=== PATIENT | male | born 1945 | race Caucasian/White ===

== ENCOUNTER 2019-07-29 06:45 | Day surgery (SDC) | payer MEDICARE, OTHER ==
[~2019-07-29] VITALS: Ht 172.7 cm; Wt 85.0 kg
[~2019-07-29 06:45] MED LIST: ASPI81CH PO; ATOR40TA PO; Isosorbide Mono30 MG PO; LISI20 PO; METO25ER PO; SULTRIDS PO; THERA1 EACH PO; unknown meds
--- NOTE | 2019-07-29 08:50 | NUR ---
PT TO RECOVERY ROOM POST PROCEDURE. PT IS ALERT AND ORIENTED, CONVERSING APPROPRIATELY, DENIES CHEST PAIN POST PROCEDURE. MONITOR SR 60-70'S, B/P 157/74, AFEBRILE, SPO2 98% RA. R RADIAL SITE NO SWELLING/HEMATOMA, TR BAND IN PLACE 12 CC AIR AT 0830.
[2019-07-29] MEDS ORDERED: CLOP75 PO (09:12)
--- NOTE | 2019-07-29 11:45 | NUR ---
PT AMB IN RECOVERY ROOM WITHOUT ANY ISSUE, SITE UNCHANGED. PT DRESSED SELF WITHOUT PROBLEM, SITE UNCHANGED. TR BAND REMOVED: CLOTH DOT, WRIST IMMOBILIZER AND SLING PLACED; IV REMOVED-CANNULA INTACT. PT'S SON WILL BE PICKING HIM UP AND STAYING WITH HIM TONIGHT.
--- NOTE | 2019-07-29 11:50 | NUR ---
PT RECEIVED DISCHARGE INSTRUCTIONS, MED LIST, SITE MANAGEMENT AND AFTER CARE INSTRUCTIONS; VEBALIZED GOOD UNDERSTANDING. PT'S PRESCRIPTION WAS CALLED IN TO [facility] PER PT REQUEST. PT LEFT FACILITY VIA W/C, CONDITION STABLE.
== END 2019-07-29 12:42 | disposition home or self-care (01) ==
LOC: MHTC 06:45 → ECHO 06:45 → EDSTATUS 07:00 → ECHO 12:42
DX: I25.10 Atherosclerotic heart disease of native coronary artery without angina pectoris (principal); I11.0 Hypertensive heart disease with heart failure; I50.9 Heart failure, unspecified; J44.9 Chronic obstructive pulmonary disease, unspecified; K21.9 Gastro-esophageal reflux disease without esophagitis; E78.5 Hyperlipidemia, unspecified; Z87.891 Personal history of nicotine dependence; Z88.1 Allergy status to other antibiotic agents; Z79.82 Long term (current) use of aspirin; Z79.899 Other long term (current) drug therapy
CPT/HCPCS: 76937; 85347; 93306; 93458; 99152; 99153; C1769; C1894; J1644; J2250; J3010; J7030; Q9967

== ENCOUNTER → 2020-11-03 | Outpatient (CLI) | payer MEDICARE, OTHER ==
[~2020-11-03] MED LIST changes: +CLOP75 PO
== END | disposition home or self-care (01) ==
LOC: LAB SHORT 14:44
DX: N39.0 Urinary tract infection, site not specified (principal)
CPT/HCPCS: 87077; 87086; 87186

== ENCOUNTER 2023-01-16 06:09 | Day surgery (SDC) | payer MEDICARE, OTHER ==
[~2023-01-16] VITALS: Ht 175.3 cm; Wt 75.2 kg
--- NOTE | 2023-01-16 08:13 | NUR ---
01/16/23 0813 Delia Armas 20ML OF ROPIVACAINE 0.5% MIXED AND VERIFIED WITH 0.1ML OF EPI (1MG/ML) TO MAKE ROPIVACAINE 0.5% WITH EPI 1:200,000. 10ML OF ROPIVACAINE 0.5% WITH EPI 1:200,000 MIXED 1:1 WITH LIDOCAINE 1% TO MAKE LOCAL USED FOR INJECTION AT THE OPSITE BY DR GARCÍA. PATIENT IN PRONE POSITION. PILLOWS UNDER CHEST AND FEET WITH ARMS ON ARMBOARDS, SMALL WHITE TOWELS UNDER SHOULDERS, TWO SAFETY STRAPS (ONE AT LOWER LEGS AND ONE AT THE WAIST).
--- NOTE | 2023-01-16 10:13 | NUR ---
01/16/23 1013 Margarette Sepulveda PATIENT IN RECLINER WITH TWO SONS AT CHAIRSIDE. PT REPORTS SIGNIFICANT PAIN RELIEF AFTER 2 DOSES OF FENTANYL FOR A TOTAL OF 25MCG FENTANYL PER RN JYC. PT GIVEN 1 TABLET PERCOCET 5-325MG X 1 TO HELP KEEP PAIN AT TOLERABLE LEVEL. PATIENT DENIES NAUSEA.
--- NOTE | 2023-01-16 10:16 | NUR ---
01/16/23 1016 Margarette Sepulveda PATIENT IN RECLINER WITH 2 SONS AT BEDSIDE. REPORTS SIGNIFICANT PAIN RELIEF AFTER 2 DOSES OF FENTANYL (TOTAL 25MCG) GIVEN BY ELLA NELSON. 1 TAB PERCOCET 5-325MG PO GIVEN AT 1010 TO HELP KEEP PAIN AT MANAGEABLE LEVEL.
[2023-01-16 10:39] VITALS: BP 128/83
== END 2023-01-16 10:50 | disposition home or self-care (01) ==
LOC: ORSCSDS 06:09
PROVIDERS: Surgery
PROC: 06BY0ZC Excision of Hemorrhoidal Plexus, Open Approach (ICD-10-PCS; principal; 2023-01-16 07:30)
DX: K64.8 Other hemorrhoids (principal); K64.4 Residual hemorrhoidal skin tags; K64.5 Perianal venous thrombosis; I10 Essential (primary) hypertension; I25.2 Old myocardial infarction; I25.10 Atherosclerotic heart disease of native coronary artery without angina pectoris; J44.9 Chronic obstructive pulmonary disease, unspecified; Z87.891 Personal history of nicotine dependence; K21.9 Gastro-esophageal reflux disease without esophagitis; Z79.899 Other long term (current) drug therapy
CPT/HCPCS: 88304; A9270; J0171; J1100; J2001; J2405; J2704; J2795; J3010

== ENCOUNTER 2024-05-06 21:31 | Inpatient (IN) | payer MEDICARE, OTHER ==
[~2024-05-06] VITALS: Ht 175.3 cm; Wt 75.2 kg
[~2024-05-06 21:31] MED LIST changes: +MULVITA PO; -THERA1 EACH PO
[2024-05-06] MEDS ORDERED: Acetaminophen 500 MG Tab PO ONE (21:40)
[2024-05-06] MEDS ORDERED: Albuterol 2.5 MG/3 ML VIAL INH SCH (21:40)
[2024-05-06] MEDS ORDERED: Ipratropium Bromide INH 0.02% 0.5 mg/2.5ML Vial INH SCH (21:40)
[2024-05-06] MEDS ORDERED: NS 1,000 ML IV SCH (21:45)
[2024-05-06 21:49] LABS: BASOPHILS ABSOLUTE AUTO 0.01 K/mm3 (0.00-0.23); BASOPHILS PERCENT AUTO 0 % (0-2); EOSINOPHILS PERCENT AUTO 0 % (0-6); Hematocrit 40.7 % (37.0-53.0); Hemoglobin 13.6 g/dL (13.5-17.5); IMMATURE GRAN ABSOLUTE AUTO 0.04 K/mm3 (0.00-0.10); IMMATURE GRAN PERCENT AUTO 1 % (0-1); LYMPHOCYTES ABSOLUTE AUTO 0.47 K/mm3 (0.84-5.20); LYMPHOCYTES PERCENT AUTO 7 % (21-46); MONOCYTES ABSOLUTE AUTO 0.44 K/mm3 (0.16-1.47); MONOCYTES PERCENT AUTO 6 % (4-13); Mean Corpuscular HGB 29.4 pg (26.0-34.0); Mean Corpuscular HGB Conc 33.4 g/dL (31.5-36.5); Mean Corpuscular Volume 88 fL (80-100); Mean Platelet Volume 11.2 fL (9.1-12.4); NEUTROPHILS ABSOLUTE AUTO 6.32 K/mm3 (1.96-9.15); NEUTROPHILS PERCENT AUTO 87 % (41-73); Platelet Count 99 K/mm3 (150-400); RDW Standard Deviation 54.4 fL (35.1-46.3); Red Blood Cell Count 4.63 M/mm3 (4.30-5.90); White Blood Cell Count 7.28 K/mm3 (4.00-11.30)
[2024-05-06 22:19] LABS: Albumin, Blood 4.2 g/dL (3.4-5.0); Albumin/Globulin Ratio 1.2 (0.8-1.8); Bilirubin, Total 0.8 mg/dL (0.1-1.0); Bun/Creatinine Ratio 16.5 (12.0-20.0); Calcium, Blood 8.7 mg/dL (8.5-10.1); Creatinine, Blood 1.09 mg/dL (0.60-1.20); Globulin, Blood 3.5 g/dL (2.2-4.0); Potassium, Blood 3.8 mmol/L (3.5-5.5); Total Protein, Blood 7.7 g/dL (6.4-8.2)
[2024-05-06 22:31] LABS: Influenza B, PCR NEGATIVE (NEGATIVE); Resp Syncytial Virus, PCR NEGATIVE (NEGATIVE); SARS-Cov-2 (COVID-19) PCR, MMC NEGATIVE (NEGATIVE)
[2024-05-06] MEDS ORDERED: OxyCODONE 10/Acetamin 325 TABLET PO ONE (22:50)
[2024-05-06] MEDS ORDERED: Diltiazem HCl 5 MG / ML 5ML Vial IV ONE (23:20)
[2024-05-06 23:40] LABS: Influenza A, PCR POSITIVE (NEGATIVE)
[2024-05-07] MEDS ORDERED: FentaNYL Citrate 50 MCG/ML 2 ML Injection IV ONE (01:35)
[2024-05-07 01:45] VITALS: BP 152/78
[2024-05-07] MEDS ORDERED: OXYC10TA19 PO (01:51)
[2024-05-07] MEDS ORDERED: Ipratropium/Albuterol SulF 2.5-0.5MG/3 ML Amp INH SCH ×2 (02:35→04:10)
[2024-05-07] MEDS ORDERED: Magnesium Hydroxide Conc 10 ML UDC PO PRN (02:35)
[2024-05-07] MEDS ORDERED: PredniSONE 20 MG Tab PO SCH (03:00)
[2024-05-07] MEDS ORDERED: Oseltamivir Phosphate 75 MG Cap PO ONE (03:00)
[2024-05-07 03:12] LABS: BASOPHILS ABSOLUTE AUTO 0.01 K/mm3 (0.00-0.23); BASOPHILS PERCENT AUTO 0 % (0-2); EOSINOPHILS PERCENT AUTO 0 % (0-6); Hematocrit 38.6 % (37.0-53.0); IMMATURE GRAN ABSOLUTE AUTO 0.07 K/mm3 (0.00-0.10); IMMATURE GRAN PERCENT AUTO 1 % (0-1); LYMPHOCYTES ABSOLUTE AUTO 0.19 K/mm3 (0.84-5.20); LYMPHOCYTES PERCENT AUTO 3 % (21-46); MONOCYTES ABSOLUTE AUTO 0.16 K/mm3 (0.16-1.47); MONOCYTES PERCENT AUTO 2 % (4-13); Mean Corpuscular HGB 29.5 pg (26.0-34.0); Mean Corpuscular HGB Conc 33.7 g/dL (31.5-36.5); Mean Corpuscular Volume 88 fL (80-100); Mean Platelet Volume 12.7 fL (9.1-12.4); NEUTROPHILS ABSOLUTE AUTO 6.46 K/mm3 (1.96-9.15); NEUTROPHILS PERCENT AUTO 94 % (41-73); Platelet Count 85 K/mm3 (150-400); RDW Coefficient Variation 16.8 % (11.7-14.2); RDW Standard Deviation 54.2 fL (35.1-46.3); White Blood Cell Count 6.89 K/mm3 (4.00-11.30)
[2024-05-07 03:30] LABS: Albumin, Blood 3.7 g/dL (3.4-5.0); Albumin/Globulin Ratio 1.1 (0.8-1.8); Bilirubin, Total 0.6 mg/dL (0.1-1.0); Bun/Creatinine Ratio 17.6 (12.0-20.0); Calcium, Blood 8.5 mg/dL (8.5-10.1); Creatinine, Blood 1.02 mg/dL (0.60-1.20); Globulin, Blood 3.3 g/dL (2.2-4.0); Magnesium, Blood 1.7 mg/dL (1.6-2.4); Potassium, Blood 4.1 mmol/L (3.5-5.5)
[2024-05-07] MEDS ORDERED: Albuterol 2.5 MG/3 ML VIAL INH PRN (04:10)
--- NOTE | 2024-05-07 04:22 | NUR ---
Pt with increasing troponin, 225 now, notified. awaiting orders. Pt with O2 at 2L, and RT by to perform neb tx. Pt continues to become dyspenic with activity. Began prednisone, and will start tamiflu on day shift. Pt with chronic pain, fentynyl administered. VS varible with increased b/p with activity. tele shows ST with PAC's and a BBB in 120's. A&O x4. Up ad opal unless he feels dizzy then will call for assist, urinal at bedside. 's
[2024-05-07 07:26] VITALS: BP 181/78
[2024-05-07] MEDS ORDERED: OxyCODONE HCL 5 MG TAB PO PRN (07:30)
[2024-05-07] MEDS ORDERED: Acetaminophen 500 MG Tab PO PRN (07:30)
[2024-05-07] MEDS ORDERED: Polyethylene Glycol 3350 17 gm PO PRN (07:35)
[2024-05-07] MEDS ORDERED: Aspirin 81 MG Chew PO SCH (09:00)
[2024-05-07] MEDS ORDERED: Isosorbide Mononitrate 30 MG TABCR PO SCH (09:00)
[2024-05-07] MEDS ORDERED: Lisinopril 20 MG Tab PO SCH (09:00)
[2024-05-07] MEDS ORDERED: Cholecalciferol 1000 Unit Tablet (=25MCG) PO SCH (09:00)
[2024-05-07] MEDS ORDERED: Enoxaparin 40 MG/0.4 ML SYR SC SCH (09:00)
[2024-05-07] MEDS ORDERED: Metoprolol Succinate 25 MG TABCR PO SCH (09:00)
[2024-05-07 09:36] VITALS: BP 144/84
--- NOTE | 2024-05-07 09:51 | NUR ---
RECEIVING CALLS FROM TELEMETRY REGARDING HIGH HEART RATE RESTING 130'S WITH HIGHS OF 150. PATIENT SOB AT THIS TIME, ON 2L NC. RHYTHM STATED IS SINUS TACH WITH FREQUENT PAC'S. MORNING MEDS GIVEN, HR RESTING 115 NOW. CONTINUES TO COMPLAIN OF SOB.
[2024-05-07 16:22] VITALS: BP 140/113
--- NOTE | 2024-05-07 18:13 | NUR ---
SHIFT SUMMARY PATIENT AMBULATING IN ROOM INDEPENDENTLY. TAKING OXY PER JUN FOR CHRONIC BACK PAIN, C/O MED NOT LASTING UNTIL THE NEXT DOSE. REQUESTING FENTANYL, INFORMED PATIENT THIS WAS NOT ON HIS MAR AND HE WAS OKAY WITH THIS. CONTINUES TO NEED SUPPLEMENTAL OXYGEN. LOW GRADE TEMP ON AND OFF, DECLINED APAP. SEVERAL CALLS FROM TELE REGARDING TACHYCARDIA, NOT SUSTAINED BUT TOUCHES INTO 150 BPM, RESTING RUNS IN 1 TEENS. BETA DUSTY GIVEN PER JUN THIS AM, SEE PRIOR NOTE. WILL CONTINUE TO ASSESS. ABLE TO MAKE NEEDS KNOWN. CALL LIGHT IN REACH, CARES ONGOING.
[2024-05-07 19:44] VITALS: BP 115/75
[2024-05-07] MEDS ORDERED: Oseltamivir Phosphate 75 MG Cap PO SCH (21:00)
[2024-05-07] MEDS ORDERED: Docusate Sodium/Senna 1 Tab PO SCH (21:00)
[2024-05-07] MEDS ORDERED: Atorvastatin 40 MG Tab PO SCH (21:00)
[2024-05-08] VITALS (25 sets, daily range): BP systolic 84–148; BP diastolic 55–105
--- NOTE | 2024-05-08 05:59 | NUR ---
SHIFT SUMMARY - PT AMBULATORY TO [facility] - PT HAD ONE EPISODE OF TACHYPNEA, SOB WITH AMBULATION BACK TO THE BED. PT HAD REMOVED HIS O2 AND CONTINUOUS BIOX - REPLACED BIOX BACK ON - 2L O2 PLACED BACK ON, SATS 95%, HOWEVER PT TOOK APPX 1 MINUTE TO RECOVER. PLACED EXTENSION TUBING ON O2 WITH EDUCATION TO KEEP HIS OXYGEN ON WHEN HE AMBULATES TO THE [facility]. PT DOES HAVE A URINAL AT BEDSIDE - BUT PT PREFERS AMBULATION TO [facility]. PT REPORTS HE HAD A BM LAST NOC ALSO. PT HAS EXPIRATORY WHEEZES TO RIGHT LUNG, LEFT SIDE CLEAR BUT DIM IN THE BASE. CALL LIGHT WITHIN REACH. BED IN LOW POSITON. FLUIDS AT BEDSIDE. PT MEDICATED FOR PAIN PER EMAR - SEE EMAR.
[2024-05-08 07:00] LABS: Hematocrit 36.9 % (37.0-53.0); Hemoglobin 12.6 g/dL (13.5-17.5); Mean Corpuscular HGB 29.4 pg (26.0-34.0); Mean Corpuscular HGB Conc 34.1 g/dL (31.5-36.5); Mean Corpuscular Volume 86 fL (80-100); Platelet Count 95 K/mm3 (150-400); RDW Standard Deviation 53.1 fL (35.1-46.3); Red Blood Cell Count 4.28 M/mm3 (4.30-5.90); White Blood Cell Count 8.78 K/mm3 (4.00-11.30)
[2024-05-08 07:09] LABS: Mean Platelet Volume 13.2 fL (9.1-12.4)
[2024-05-08 07:24] LABS: Albumin, Blood 3.5 g/dL (3.4-5.0); Anion Gap 11 mmol/L (3-11); Blood Urea Nitrogen 26 mg/dL (8-24); Bun/Creatinine Ratio 27.3 (12.0-20.0); CO2, Blood 25 mmol/L (21-32); Calcium, Blood 8.7 mg/dL (8.5-10.1); Chloride, Blood 101 mmol/L (98-108); Creatinine, Blood 0.95 mg/dL (0.60-1.20); Glomerular Filtration Rate 83 (60-); Glucose, Blood 137 mg/dL (70-99); Magnesium, Blood 2.1 mg/dL (1.6-2.4); Phosphorus, Blood 3.1 mg/dL (2.5-4.9); Potassium, Blood 4.1 mmol/L (3.5-5.5); Sodium, Blood 133 mmol/L (136-145)
[2024-05-08] MEDS ORDERED: Metoprolol Succinate 25 MG TABCR PO SCH (09:00)
[2024-05-08] MEDS ORDERED: NS 1,000 ML IV SCH (11:05)
--- NOTE | 2024-05-08 11:53 | NUR ---
PHYSICIAN CONTACT CALLED DR PRAJAPATI REGARDING SEVERAL CALLS FROM TELE, TACHYCARDIA AND POSSIBLE A FLUTTER RHYTHM CHANGES. EKG DONE, INTERPRETATION READ TO DR PRAJAPATI. PATIENT CONDITION REMAINS SAME, CONTINUES TO C/O SOB AND FATIGUE. DR PRAJAPATI STATED HE WOULD PLACE ORDERS FOR PRN MEDICATION.
[2024-05-08] MEDS ORDERED: dilTIAZem HCL 30 MG TAB PO PRN (11:55)
--- NOTE | 2024-05-08 15:42 | NUR ---
PHYSICIAN CONTACT CALLED DR PRAJAPATI REGARDING CONTINUED CALLS FROM SOCIAL ECONOMIST, BASELINE HR INCREASE FROM RESTING 110'S TO 120'S, WITH SPIKES UP TO 170'S. PATIENT CONTINUES TO FEEL SOB, LETHARGIC AND HAS STARTED MAKING STATMENTS THAT HE FEELS LIKE HE IS GOING TO SOON, DOC MADE AWARE. DOC STATED HE WILL PUT IN ORDERS.
[2024-05-08] MEDS ORDERED: Metoprolol Succinate 25 MG TABCR PO ONE (16:00)
--- NOTE | 2024-05-08 17:57 | NUR ---
PHYSICIAN CONTACT RECEIVED CALL FROM TELE, STATED CONCERN REGARDING HR SPIKES INCREASING IN FREQUENCY AND INCREASING IN AMOUNT OF TIME SUSTAINED. CALLED DR PRAJAPATI WITH THIS CONCERN WHO OKAYED TO TRANSFER TO PCU. CHARGE NURSE NOTIFIED. PATIENT NOTIFIED
--- NOTE | 2024-05-08 18:18 | NUR ---
SHIFT SUMMARY SEVERAL CALLS THROUGHOUT SHIFT REGARDING HEART RATE, LISTENED TO CONCERNS FROM PCU STAFF REGRADING RHYTHM. SEVERAL CALLS TO DR PRAJAPATI REGARDING THIS. FINAL CALL TO DR PRAJAPATI THIS SHIFT, HE OKAYED TRANSFER TO PCU. PATIENT A/O X4, RECEIVING OXY FOR CHRONIC BACK AND NECK PAIN. C/O SOB ON 2 LITERS NC, SATING WITHIN LIMITS WITH AND WITHOUT SUPPLEMENTAL OXYGEN, BUT HR INCREASES WITHOUT IT. SKIN INTACT. INCONTINENT EPISODE OF URINE WHICH IS NOT BASELINE. A/OX4. CALL LIGHT IN REACH, SBA FOR CORDS, ABLE TO MAKE NEEDS KNOWN. CARES ONGOING.
[2024-05-08] MEDS ORDERED: Diltiazem HCl 5 MG / ML 5ML Vial IV ONE (18:25)
--- NOTE | 2024-05-08 18:44 | NUR ---
PT TX'D TO PCU 1 FROM [facility] FOR CARDIZEM GTT.
[2024-05-09] VITALS (65 sets, daily range): BP systolic 74–162; BP diastolic 39–137
[2024-05-09 04:47] LABS: Hematocrit 34.7 % (37.0-53.0); Hemoglobin 11.8 g/dL (13.5-17.5); Mean Corpuscular HGB 29.5 pg (26.0-34.0); Mean Corpuscular Volume 87 fL (80-100); Mean Platelet Volume 12.6 fL (9.1-12.4); Platelet Count 137 K/mm3 (150-400); RDW Coefficient Variation 16.9 % (11.7-14.2); RDW Standard Deviation 54.3 fL (35.1-46.3); White Blood Cell Count 9.05 K/mm3 (4.00-11.30)
[2024-05-09 05:01] LABS: Albumin, Blood 3.2 g/dL (3.4-5.0); Anion Gap 13 mmol/L (3-11); Blood Urea Nitrogen 33 mg/dL (8-24); CO2, Blood 24 mmol/L (21-32); Calcium, Blood 8.2 mg/dL (8.5-10.1); Chloride, Blood 99 mmol/L (98-108); Creatinine, Blood 0.97 mg/dL (0.60-1.20); Glomerular Filtration Rate 81 (60-); Glucose, Blood 168 mg/dL (70-99); Magnesium, Blood 2.2 mg/dL (1.6-2.4); Phosphorus, Blood 3.2 mg/dL (2.5-4.9); Sodium, Blood 132 mmol/L (136-145)
--- NOTE | 2024-05-09 05:14 | NUR ---
SHIFT SUMMARY ASSUMED CARE OF PT AT APPROX 1900. PT A&O4, COOPERATIVE IN CARE AND ABLE TO EXPRESS NEEDS APPROPRIATELY. PT PRESENTED WITH ELEVATED HR RANGING FROM 100-170. AFTER SHIFT REPORT, OFF GOING RN ADMINISTERED CARDIZEM IV PUSH WHICH WAS UNSUCCESSFUL IN REDUCING HR. DILTIAZEM GTT STARTED AT 1940 AND TITRATED T/O THE NIGHT. ATTEMPTED TO STOP GTT AT APPROX 0245 BUT HR BEGAN TO RISE AND GTT RESTARTED AT 0300. PT DENIES CP/PRESSURE AND SOB. VSS AND PT REMAINED ON 2L NC. BED IN LOWEST POSITION AND CALL LIGHT WITHIN REACH.
--- NOTE | 2024-05-09 08:30 | NUR ---
[place] of care: Resting in bed with no complaints. Alert & oriented. In AFib with HR as high as 170s. Cardizem gtt titrated per orders. BP stable. Weaned from 4L to 2L NC. Will continue to monitor.
[2024-05-09] MEDS ORDERED: Metoprolol Succinate 50 MG TABCR PO SCH (09:00)
[2024-05-09] MEDS ORDERED: Apixaban 5 MG Tab PO SCH (09:00)
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
--- NOTE | 2024-05-09 17:21 | NUR ---
Shift summary: Remains neuro intact, on 2L NC, cardizem gtt at 10, remains in Afib mostly sustaining 100-110. Blood pressures stable. Good PO intake. Voiding in bedside commonde. BM x1 today. Only complaint is chronic pain for which he is receiving deja q6h prn. Will continue to monitor.
[2024-05-10] VITALS (7 sets, daily range): BP systolic 103–124; BP diastolic 65–102
[2024-05-10] MEDS ORDERED: OXYCODONE-ACET1 EAC2 (01:56)
[2024-05-10 04:08] LABS: Hematocrit 32.1 % (37.0-53.0); Hemoglobin 11.2 g/dL (13.5-17.5); Mean Corpuscular HGB 29.7 pg (26.0-34.0); Mean Corpuscular HGB Conc 34.9 g/dL (31.5-36.5); Mean Corpuscular Volume 85 fL (80-100); Mean Platelet Volume 12.2 fL (9.1-12.4); Platelet Count 149 K/mm3 (150-400); RDW Standard Deviation 53.3 fL (35.1-46.3); Red Blood Cell Count 3.77 M/mm3 (4.30-5.90)
[2024-05-10 04:46] LABS: Albumin, Blood 3.3 g/dL (3.4-5.0); Anion Gap 12 mmol/L (3-11); Blood Urea Nitrogen 40 mg/dL (8-24); Bun/Creatinine Ratio 36.7 (12.0-20.0); CO2, Blood 26 mmol/L (21-32); Calcium, Blood 8.5 mg/dL (8.5-10.1); Chloride, Blood 98 mmol/L (98-108); Creatinine, Blood 1.09 mg/dL (0.60-1.20); Glomerular Filtration Rate 70 (60-); Glucose, Blood 138 mg/dL (70-99); Magnesium, Blood 2.2 mg/dL (1.6-2.4); Phosphorus, Blood 3.6 mg/dL (2.5-4.9); Potassium, Blood 3.8 mmol/L (3.5-5.5); Sodium, Blood 132 mmol/L (136-145)
--- NOTE | 2024-05-10 06:23 | NUR ---
SHIFT SUMMARY: PT IS A&OX4. BP STABLE, A-FIB 90-120'S, AFEBRILE, O2 SATS >93% ON 1.5L NC. DILT GTT INFUSING AND TITRATED PER ORDERS. C/O PAIN IN HIS BACK 10/20, MEDICATED WITH PRN OXY AND TYLENOL. K-PAD GIVEN TO PT TO TRY AND HELP WITH PAIN. TOLERATING A HEART HEALTHY DIET, BUT HAS POOR APPETITE AND FEELS NAUSEOUS WHEN TRYING TO EAT. VOIDING INDEPENDENTLY IN URINAL AT BEDSIDE. NO BM THIS SHIFT. PT STATES HIS BOWEL MOVEMENT YESTERDAY WAS BLACK IN COLOR, NOT WITNESSED BY THIS RN. BED IN LOWEST POSITION, CALL LIGHT WITHIN REACH. DROPLET PRECAUTIONS MAINTAINED FOR FLU.
[2024-05-10] MEDS ORDERED: Metoprolol Succinate 50 MG TABCR PO SCH ×2 (09:00)
--- NOTE | 2024-05-10 13:05 | NUR ---
ASSUMPTION OF CARE PT A&O X4, CALM, COOPERATIVE TO CARE. SINUS RHYTHM, 80'S, CARDIZEM GTT TURNED OFF THIS AM. HE DENIES CP/PRESSURE, NUMB/TINGLING. SBP IN THE 100'S-100'S. O2 >92% ON 1.5L VIA NC, DENIES SOB AT THIS TIME. BREATHING IS EVEN AND UNLABORED. PT RESTING IN BED AT THIS TIME. WILL MONITOR PT.
--- NOTE | 2024-05-10 17:23 | NUR ---
SHIFT SUMMARY PT A&O X4, CALM, COOPERATIVE TO CARE. HR IN THE 80'S-90'S, SR. DENIES CP/PRESSURE, NUMB/TINGLING, SBP STABLE, HR INCREASES WITH ACTTIVITY. O2 >92% ON 2L VIA NC, PT DESATS OCASSIONALLY TO THE LOW 80'S WHILE SLEEPING. PT RESTING IN BED AT THIS TIME, BREATHING EVEN, UNLABORED. CARDIZEM GTT REMAINS OFF T/O SHIFT. NO ACUTE CHANGES T/O SHIFT. PT DENIES ANY QUESTIONS OR CONCERNS AT THIS TIME. WILL MONITOR PT AND REPORT TO SUPERVISING FLOORPERSON RN.
[2024-05-11 04:11] VITALS: BP 122/74
--- NOTE | 2024-05-11 06:22 | NUR ---
SHIFT SUMMARY PT IS A&OX4. NO ACUTE CHANGES THIS SHIFT. BP STABLE, SR IN THE 90'S, AFEBRILE, O2 SATS >93% ON 1L NC WHILE ASLEEP. THIS RN TRIALED HIM ON RA WHEN AWAKE, O2 SATS ARE 96%. PT IS COUGHING UP MODERATE AMOUNTS OF THICK, GREENISH YELLOW MUCUS. C/O PAIN IN HIS BACK 10/20, MEDICATED WITH PRN OXY AND TYLENOL. PT IS INDEPENDENT IN HIS ROOM, CALLS APPROPRIATELY AND IS ABLE TO ADVOCATE NEEDS EFFECTIVELY. TOLERATING A HEART HEALTHY DIET. VOIDING ADEQUATE AMOUNTS OF DARK YELLOW URINE INDEPENDENTLY IN URINAL AT BEDSIDE. LARGE, FORMED, BROWN BM X1. BED IN LOWEST POSITION, CALL LIGHT WITHIN REACH. DROPLET PRECAUTIONS MAINTAINED FOR FLU.
[2024-05-11 08:08] VITALS: BP 120/83
[2024-05-11 11:47] VITALS: BP 109/75
[2024-05-11] MEDS ORDERED: ELIQUIS5 M2 PO (13:22)
[2024-05-11] MEDS ORDERED: PRED20 PO (13:23)
[2024-05-11] MEDS ORDERED: OSEL75CA PO (13:23)
[2024-05-11] MEDS ORDERED: Vitamin D1000 UNI1 PO (13:24)
[2024-05-11 15:32] VITALS: BP 111/59
--- NOTE | 2024-05-11 18:10 | NUR ---
DISCHARGE SUMMARY PT A&O X4, CALM, COOPERATIVE TO CARE. HR IN THE 80'S, SINUS RHYTHM, DENIES CP/PRESSURE, NUMB/TINGLING. O2 >92% ON RA, DENIES SOB. HOME O2 EVAL COMPLETED WITH RT, PER EVAL PT NOT IN NEED OF HOME O2. PT HAD A LARGE BM THIS AFTERNOON. DISCHARGE ORDERS RECIEVED FOR PT. DISCHARGE INSTRUCTIONS REVIEWED WITH PT AND HIS SON. ANSWERED QUESTIONS FOR PT AND SON. IV'S REMOVED, PRESSURE APPLIED, DRESSED WITH GAUZE AND COBAN, PT TOLERATED WELL. PT LEFT VIA WHEELCHAIR WITH PCT.
== END 2024-05-11 17:13 | disposition home or self-care (01) | DRG 871 ==
LOC: ER 21:31 → MEDS 23:00 → ERHOLD 23:00 → MEDS 05-07 01:39 → PCU 05-08 18:28
PROVIDERS: Internal Medicine; Student in an Organized Health Care Education/Training Program; ADMIT Internal Medicine
PROC: 5A09357 Assistance with Respiratory Ventilation, Less than 24 Consecutive Hours, Continuous Positive Airway Pressure (ICD-10-PCS; principal; 2024-05-06)
DX: A41.89 Other specified sepsis (principal); J96.01 Acute respiratory failure with hypoxia; J11.1 Influenza due to unidentified influenza virus with other respiratory manifestations; I10 Essential (primary) hypertension; R73.03 Prediabetes; G89.29 Other chronic pain; R65.20 Severe sepsis without septic shock; I48.91 Unspecified atrial fibrillation; I25.10 Atherosclerotic heart disease of native coronary artery without angina pectoris; Z88.1 Allergy status to other antibiotic agents; Z79.82 Long term (current) use of aspirin; Z79.899 Other long term (current) drug therapy; Z98.890 Other specified postprocedural states; Z87.891 Personal history of nicotine dependence; Z95.5 Presence of coronary angioplasty implant and graft
CPT/HCPCS: 0241U; 36415; 71045; 80053; 80069; 83735; 84484; 85025; 85027; 93005; 93010; 93306; 94640; 94664; 94761; 94762; 96361; 96374; 99285-25; A9270; J1650; J3010; J7030; J7512

== ENCOUNTER 2024-11-08 06:37 | Day surgery (SDC) | payer MEDICARE, OTHER ==
[~2024-11-08] VITALS: Ht 177.8 cm; Wt 78.0 kg
[2024-11-08] VITALS (7 sets, daily range): BP systolic 123–137; BP diastolic 68–108
[~2024-11-08 06:37] MED LIST changes: +ELIQUIS5 M2 PO; +OSEL75CA PO; +OXYC10TA19 PO; +OXYCODONE-ACET1 EAC2; +PRED20 PO; +Vitamin D1000 UNI1 PO
[2024-11-08] MEDS ORDERED: Verapamil HCL 2.5 MG/ML 2ML Injection ONE (06:45)
[2024-11-08] MEDS ORDERED: NS 1,000 ML IV ONE ×2 (06:45→08:18)
[2024-11-08] MEDS ORDERED: Heparin Sodium 1000 Units/ML 10ML MDV ONE ×2 (06:45→08:18)
[2024-11-08] MEDS ORDERED: Nitroglycerin 2 MG/20 ML BTL ONE (06:45)
[2024-11-08] MEDS ORDERED: NS 250 ML IV ONE (06:45)
[2024-11-08 07:37] LABS: Hematocrit 34.2 % (37.0-53.0); Hemoglobin 11.1 g/dL (13.5-17.5); Mean Corpuscular HGB Conc 32.5 g/dL (31.5-36.5); Mean Corpuscular Volume 85 fL (80-100); NRBC ABSOLUTE 0.00 K/mm3 (0.00-0.02); NRBC Auto 0.0 /100 WBC (0.0-0.2); Platelet Count 229 K/mm3 (150-400); RDW Coefficient Variation 17.9 % (11.7-14.2); RDW Standard Deviation 55.2 fL (35.1-46.3)
[2024-11-08 07:58] LABS: Prothrombin Time Results 11.2 Sec (9.7-11.5)
[2024-11-08 07:59] LABS: Anion Gap 7.0 mmol/L (3-11); Blood Urea Nitrogen 17.0 mg/dL (8-24); CO2, Blood 28.0 mmol/L (21-32); Calcium, Blood 8.4 mg/dL (8.5-10.1); Chloride, Blood 108.0 mmol/L (98-108); Creatinine, Blood 1.05 mg/dL (0.60-1.20); Glucose, Blood 123.0 mg/dL (70-99); Potassium, Blood 4.2 mmol/L (3.5-5.5); Sodium, Blood 139.0 mmol/L (136-145)
[2024-11-08] MEDS ORDERED: Midazolam HCl 1MG / ML 2ML Vial ONE (08:18)
[2024-11-08] MEDS ORDERED: FentaNYL Citrate 50 MCG/ML 2 ML Injection ONE (08:18)
--- NOTE | 2024-11-08 09:15 | NUR ---
PT RETURNED TO RECOVERY ROOM IN RECLINER. RIGHT RAD TR BAND SITE SOFT NON-TENDER WITH NO HEMATOMA, NO PULSATILE BLEEDING AND RIGHT WRIST BOARD IN PLACE. PT DENIES CHEST PAIN. CALL LIGHT IN REACH. PT DRINKING COFFEE.
--- NOTE | 2024-11-08 09:32 | NUR ---
DR STEVENSON IN ROOM TO SEE PT AND HIS SON.
--- NOTE | 2024-11-08 09:33 | NUR ---
NO CHANGES TO R RAD TR BAND SITE.
--- NOTE | 2024-11-08 09:57 | NUR ---
NO CHANGES TO R RAD TR BAND SITE.
--- NOTE | 2024-11-08 10:15 | NUR ---
NO CHANGES TO R RAD TR BAND SITE. SP02 PROBE HAS BEEN ON RIGHT INDEX FINGER SINCE ARRIVAL BACK FROM PROCEDURE.
--- NOTE | 2024-11-08 10:29 | NUR ---
NO CHANGES TO R RAD TR BAND SITE.
--- NOTE | 2024-11-08 10:46 | NUR ---
9 CC OF AIR REMOVED OVER 10 MIN FROM NOW DEFLATED R RAD TR BAND SITE. R RAD SITE STILL SOFT NON-TENDER WITH NO HEMATOMA, NO PULSATILE BLEEDING AND RIGHT WRIST BOARD IN PLACE. DISCHARGE INSTRUCTIONS REVIEWED ALL QUESTIONS ANSWERED.
--- NOTE | 2024-11-08 11:00 | NUR ---
NO CHANGES TO DEFLATED R TR BAND SITE. PT'S SON IN ROOM.
--- NOTE | 2024-11-08 11:49 | NUR ---
Tr band removed, no bleeding noted. Site cleansed and cloth dot placed. Arm board placed on right arm. Pt and son have no questions upon discharge. Saline lock removed from l ac with catheter intact, dressing applied. Pt to private vehicle per w/c with one staff in care of his son.
== END 2024-11-08 11:45 | disposition home or self-care (01) ==
LOC: MHTC 06:37
PROVIDERS: Student in an Organized Health Care Education/Training Program
DX: I25.10 Atherosclerotic heart disease of native coronary artery without angina pectoris (principal); R94.39 Abnormal result of other cardiovascular function study; I10 Essential (primary) hypertension; J44.9 Chronic obstructive pulmonary disease, unspecified; K21.9 Gastro-esophageal reflux disease without esophagitis; I25.2 Old myocardial infarction; E78.5 Hyperlipidemia, unspecified; Z79.01 Long term (current) use of anticoagulants; Z79.82 Long term (current) use of aspirin; Z79.899 Other long term (current) drug therapy; Z88.1 Allergy status to other antibiotic agents
CPT/HCPCS: 76937; 80048; 85027; 85347; 85610; 93458; 93571; 99152; 99153; C1769; C1887; C1894; J1644; J2250; J3010; J7030; J7050; Q9967